=== PATIENT | male | born 1960 | race Caucasian/White ===

== ENCOUNTER 2021-08-31 02:55 | Emergency (ER) | payer OTHER ==
[2021-08-31] MEDS ORDERED: Silver Nitrate Applicator Each TOP ONE ×2 (03:00→11:28)
[2021-09-02] MEDS ORDERED: Silver Nitrate Applicator Each TOP ONE (06:44)
== END 2021-08-31 03:52 | disposition home or self-care (01) ==
LOC: LB.ED 02:55
DX: R04.0 Epistaxis (principal)
CPT/HCPCS: 30901; 99283-25

== ENCOUNTER 2023-11-09 10:05 | Emergency (ER) | payer OTHER ==
[2023-11-09] MEDS: Lactated Ringers 1,000 ML IV SCH (11:13)
[2023-11-09 11:49] LABS: APPEARANCE,URINE CLEAR (CLEAR); BILIRUBIN,URINE NEGATIVE (NEGATIVE); COLOR,URINE YELLOW; GLUCOSE,URINE NEGATIVE (NEGATIVE); KETONES,URINE NEGATIVE (NEGATIVE); LEUKOCYTE ESTERASE,URINE NEGATIVE (NEGATIVE); NITRITE,URINE NEGATIVE (NEGATIVE); OCCULT BLOOD,URINE NEGATIVE (NEGATIVE); PROTEIN,URINE NEGATIVE (NEGATIVE); UROBILINOGEN,URINE 0.2 E.U./dL (0.2-1.0)
[2023-11-09] MEDS: Aspirin 81 MG Tab.Chew PO ONE (11:53)
[2023-11-09 12:09] LABS: HEMATOCRIT 43.7 % (40.0-54.0); HEMOGLOBIN 14.6 g/dL (13.0-18.0); RED BLOOD CELL COUNT 5.21 M/uL (4.50-6.50); WHITE BLOOD CELL COUNT,WBC 13.2 K/uL (4.0-11.0)
[2023-11-09 12:10] LABS: BASOPHILS ABSOLUTE AUTO 0.03 K/uL (0.02-0.10); BASOPHILS PERCENT AUTO 0.2 % (0.0-0.5); EOSINOPHILS ABSOLUTE AUTO 0.05 K/uL (0.04-0.40); EOSINOPHILS PERCENT AUTO 0.4 % (1.0-5.0); LYMPHOCYTES ABSOLUTE AUTO 0.76 K/uL (1.50-4.00); LYMPHOCYTES PERCENT AUTO 5.8 % (20.0-40.0); MEAN CORPUSCULAR HGB CONC 33.4 g/dL (31.0-35.0); MEAN CORPUSCULAR VOLUME 84 fL (76-96); MEAN PLATELET VOLUME 11.3 fL (6.0-10.0); MONOCYTES ABSOLUTE AUTO 0.56 K/uL (0.20-0.80); MONOCYTES PERCENT AUTO 4.2 % (3.0-10.0); NEUTROPHILS ABSOLUTE AUTO 11.79 K/uL (2.00-7.50); NEUTROPHILS PERCENT AUTO 89.4 % (45.0-70.0); PLATELET COUNT,PLT 184 K/uL (150-400); RED CELL DISTRIBUTION WIDTH 14.3 % (11.0-16.0)
[2023-11-09] MEDS: Iopamidol 612 MG/ML 100 ML Bottle IV SCH (13:04)
[2023-11-09] MEDS: Sodium Chloride 0.9% 50 ML SDV FLUSH ONE (13:04)
[2023-11-09 14:47] LABS: A/G RATIO 1.1 (0.8-2.0); ALBUMIN 3.8 g/dL (3.4-5.0); ANION GAP 16.6 mmol/L (5.0-15.0); BILIRUBIN TOTAL 0.7 mg/dL (0.0-1.0); BUN/CREATININE RATIO 16.8 (6-25); CALCIUM 8.6 mg/dL (8.5-10.1); CARBON DIOXIDE,CO2 23.4 mmol/L (21.0-32.0); CREATININE 1.01 mg/dL (0.70-1.30); EST CRCL DRUG DOSING (CG) 74.31 mL/min; PROTEIN TOTAL,TP 7.2 g/dL (6.4-8.2)
[2023-11-09 15:07] LABS: INFLUENZA A NAA NEGATIVE (NEGATIVE); INFLUENZA B NAA NEGATIVE (NEGATIVE); RESPIRATORY SYNCYTIAL VIR NAA NEGATIVE (NEGATIVE)
[2023-11-09 15:08] LABS: CORONAVIRUS COVID-19 NAA NEGATIVE (NEGATIVE)
== END 2023-11-09 15:53 ==
LOC: LB.ED 10:05
DX: G45.4 Transient global amnesia (principal); E78.00 Pure hypercholesterolemia, unspecified; E03.9 Hypothyroidism, unspecified; Z79.899 Other long term (current) drug therapy
CPT/HCPCS: 0241U; 36415; 70450; 70496; 70498; 71045; 80053; 81003; 83735; 84443; 85025; 93005; 96360; 96361; 99285-25; A9270-GY; J3490; J7120; Q9967